=== PATIENT | female | born 1950 | race Caucasian/White ===

== ENCOUNTER 2021-02-07 09:22 | Day surgery (SDC) | payer MEDICARE, OTHER, SELFPAY ==
--- NOTE | 2021-02-06 17:37 | PM.PREOP ---
Pre-operative Note COVID-19 COVID-19 status: Negative Interval Note History & Physical reviewed/Exam performed by Physician: Yes Changes to H&P: No
--- NOTE | 2021-02-06 17:38 | P.OP_ITS ---
Operative Date/Time/Diagnoses Date of procedure: 02/07/21 Time of procedure: 10:45 Procedure & Clinicians Procedure: Preoperative diagnoses: 1. Left complexadvanced nuclear sclerotic and cortical cataract with need for capsular dye 2. Posttraumatic stress disorder 3. Anxiety 4. Smoker 5. Migraine 6. 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 History of left central serous retinopathy. Postoperative diagnoses: 1. Cataract removed by phacoemulsification with placement of posterior chamber intraocular lens. Procedure: Complex Phacoemulsification with posterior chamber intraocular lens implant and use of capsular dye. Surgeon: Viviana Espinoza MD Complications: None Specimen: None Implant: [id number]+24.0 Blood loss: None Anesthesia: Retrobulbar with monitored standby Description of procedure: Patient presents with a complaint of decreased vision due to cataract which is affecting activities of daily living with problems with night driving. The patient wants surgery to improve vision. The patient understands the extra risk of surgery during the COVID-19 epidemic and wishes to proceed. She tested negative for active virus within 72 hours of the procedure. She has had a history of posttraumatic stress syndrome and may have eye trauma and has poor red reflex. She is also very anxious. Therefore it is felt best to proceed with capsular dye increase the safety of the procedure. The patient was taken to the operating room and given IV sedation. A retrobulbar block consisting of 6 cc of 2% xylocaine without epinephrine mixed half and half with 0.5% Marcaine with 1 cc of hyaluronidase added is placed between the medial and lateral 1/3 of the inferior orbital rim. The eye is manually massaged for 30 sec, prepped using Betadine solution, and draped in the usual sterile fashion. Temporal approach was made, a 1 mm side-port incision was made 90? from the proposed clear corneal incision position. Phenylephrine 1.5% mixed with 1% xylocaine 0.2 cc was placed into the anterior chamber an air bubble was placed followed by vision blue capsular dye. The excess dye was then irrigated out with BSS. EndoCoat followed by Healon was then placed. A 2.6 mm clear incision with a 2.6 mm blade was placed. A 360 degree capsulorrhexis style capsulotomy was then performed with a cystitome needle on a Healon greatly aided by the capsular dye. The zonules were mobile but no weaknessis was noted and zonules held intact. Hydrodelineation and hydrodissection were performed. The phacoemulsification unit is introduced, and sculpting notice used to groove the central lens. It is then removed in chopping mode. Epi nucleus is removed with epinuclear mode and irrigation aspiration was used to remove the peripheral cortex. The posterior capsule is polished. The intraocular lens is selected, inspected, power confirmed, and placed in the posterior chamber. The wound was stromally hydrated and tested for leaks, there was none and it was left sutureless. Intracameral moxifloxacin 0.1 cc was placed into the anterior chamber. Kenalog 0.2 cc was placed in the superior subconjunctival space. A drop of antibiotic and was placed and the eye was patched and shielded. The patient was stable and returned to the recovery room in excellent condition. Dictated by: Viviana Espinoza MD Copy to: [facility] Same procedure as scheduled: Yes
[2021-02-07] MEDS: PROPARACAINE 0.5% OPHTH SOL 2 DROPS EYE-OP (09:55)
[2021-02-07] MEDS: CATARACT EYE COMPOUND (10 DROPS/SYRINGE) 3 DROPS EYE-OP (09:56)
[2021-02-07 09:58] VITALS: BP 146/86; PULSE 98; RESP 16; TEMP 36.3; O2SAT 96; BMI 23.5
[2021-02-07] MEDS: LIDOCAINE 2% 4 ML, BUPIVACAINE 0.5% (PF) 4 ML, HYALURONIDASE 150 UNIT INJ (11:16)
[2021-02-07] MEDS: PHENYLEPHRINE/LIDOCAINE VIAL (OR) 0.2 ML EYE-OP (11:28)
[2021-02-07] MEDS: HYALURONATE SODIUM 30 MG-10 MG/ML SYRINGES 1 BOX INTRAOCULA (11:28)
[2021-02-07] MEDS: ERYTHROMYCIN OPHTH 1 GM OINT 1 APPLIC EYE-LEFT (11:28)
[2021-02-07] MEDS: MOXIFLOXACIN INJ 4 MG/0.8 ML VIAL 0.5 MG EYE-OP (11:28)
[2021-02-07] MEDS: TRIAMCINOLONE 50 MG/5 ML VIAL INJ (11:29)
[2021-02-07] MEDS: TRYPAN BLUE 0.5 ML SYRINGE INJ (11:30)
[2021-02-07] MEDS: BALANCED SALT IRRIG SOLN NO.2 500 ML, EPINEPHrine 1 MG IRR (11:31)
[2021-02-07 11:55] VITALS: BP 120/76; PULSE 77; RESP 15; TEMP 36.8; O2SAT 96
== END 2021-02-07 12:18 | disposition home or self-care (01) ==
PROVIDERS: Family Provider Family Medicine; PCP Family Medicine; Referring Provider Ophthalmology; Visit Provider Ophthalmology
PROC: (CPT 66984; principal; 2021-02-07 10:45)
DX: H25.812 Combined forms of age-related cataract, left eye (principal); F43.10 Post-traumatic stress disorder, unspecified; F41.9 Anxiety disorder, unspecified; F17.210 Nicotine dependence, cigarettes, uncomplicated; G43.909 Migraine, unspecified, not intractable, without status migrainosus; T36.1X5A Adverse effect of cephalosporins and other beta-lactam antibiotics, initial encounter
CPT/HCPCS: 66984; J0171; J2704; J3301; J3470

== ENCOUNTER 2021-03-14 09:20 | Day surgery (SDC) | payer MEDICARE, OTHER, SELFPAY ==
--- NOTE | 2021-03-13 17:38 | PM.PREOP ---
Pre-operative Note COVID-19 COVID-19 status: Negative Interval Note History & Physical reviewed/Exam performed by Physician: Yes Changes to H&P: No
--- NOTE | 2021-03-13 17:39 | PM.OP.1 ---
Operative Date/Time/Diagnoses Date of procedure: 03/14/21 Time of procedure: 10:45 Procedure & Clinicians Procedure: Preoperative diagnoses: 1. Complex Right advanced probably tramatic significant nuclear sclerotic and cortical cataract. 2. Posttraumatic stress disorder 3. Anxiety 4. Migraine Postoperative diagnoses: 1. Complex cataract removed by phacoemulsification with placement of posterior chamber intraocular lens. Possible capsular dye. Procedure: Phacoemulsification with posterior chamber intraocular lens implant. Capsular dye used for additional safety. Surgeon: Viviana Espinoza MD Complications: None Specimen: None Implant:[id number]+24.0 Blood loss: None Anesthesia: Retrobulbar with monitored standby Description of procedure: Patient presents with a complaint of decreased vision due to cataract which is affecting activities of daily living with problems with night driving. The patient wants surgery to improve vision. The patient understands the extra risk of surgery during the COVID-19 epidemic and wishes to proceed. She has tested negative for active virus within 72 hours of the procedure. She has a history of previous trauma and post traumatic stress disorder and anxiety. Her cataract is high risk with possible zonular loss due to trauma. Capsular dye issues to increase safety. The patient was taken to the operating room and given IV sedation. A retrobulbar block consisting of 6 cc of 2% xylocaine without epinephrine mixed half and half with 0.5% Marcaine with 1 cc of hyaluronidase added is placed between the medial and lateral 1/3 of the inferior orbital rim. The eye is manually massaged for 30 sec, prepped using Betadine solution, and draped in the usual sterile fashion. Additional anti anxiety medication was given several times during the procedure. Temporal approach was made, a 1 mm side-port incision was made 90? from the proposed clear corneal incision position. Phenylephrine 1.5% mixed with 1% xylocaine 0.2 cc was placed into the anterior chamber. An air bubble was placed followed by capsular dye. The BSS was then used to irrigate out the air bubble. EndoCoat followed by Healon was then placed. A 2.6 mm clear incision with a 2.6 mm blade was placed. A 360 degree capsulorrhexis style capsulotomy was then performed with a cystitome needle on a Healon aided by the capsular dye. Her zonules were somewhat loose during the procedure. Hydrodelineation and hydrodissection were performed. The phacoemulsification unit is introduced, and sculpting notice used to groove the central lens. It is then removed in chopping mode. Extra viscoelastic was placed for safety. nucleus is removed with epinuclear mode and irrigation aspiration was used to remove the peripheral cortex. The posterior capsule is polished. The intraocular lens is selected, inspected, power confirmed, and placed in the posterior chamber. The wound was stromally hydrated and tested for leaks, there was none and it was left sutureless. The lens centered well. Intracameral moxifloxacin 0.1 cc was placed into the anterior chamber. Kenalog 0.2 cc was placed in the superior subconjunctival space. A drop of antibiotic and was placed and the eye was patched and shielded. The patient was stable and returned to the recovery room in excellent condition. Dictated by: Viviana Espinoza MD Copy to: [facility] Same procedure as scheduled: Yes
[2021-03-14] MEDS: PROPARACAINE 0.5% OPHTH SOL 2 DROPS EYE-OP (09:40)
[2021-03-14] MEDS: CATARACT EYE COMPOUND (10 DROPS/SYRINGE) 3 DROPS EYE-OP (09:48)
[2021-03-14 09:51] VITALS: BMI 23.5
[2021-03-14 09:59] VITALS: BP 153/80; PULSE 80; RESP 95; TEMP 36.4; O2SAT 12
[2021-03-14] MEDS: LIDOCAINE 2% 4 ML, BUPIVACAINE 0.5% (PF) 4 ML, HYALURONIDASE 150 UNIT INJ (10:50)
--- NOTE | 2021-03-14 11:06 | SUR.OPER ---
Supine on eye stretcher, head on extension cradle and foam donut then secured with tape. Arms tucked at sides with blanket. Pillow under knees.
[2021-03-14] MEDS: HYALURONATE SODIUM 30 MG-10 MG/ML SYRINGES 1 BOX INTRAOCULA (11:10)
[2021-03-14] MEDS: MOXIFLOXACIN INJ 4 MG/0.8 ML VIAL 0.5 MG EYE-OP (11:10)
[2021-03-14] MEDS: TRIAMCINOLONE 50 MG/5 ML VIAL INJ (11:11)
[2021-03-14] MEDS: PHENYLEPHRINE/LIDOCAINE VIAL (OR) 0.2 ML EYE-OP (11:11)
[2021-03-14] MEDS: BALANCED SALT IRRIG SOLN NO.2 500 ML, EPINEPHrine 1 MG IRR (11:12)
[2021-03-14] MEDS: ERYTHROMYCIN OPHTH 1 GM OINT 1 APPLIC EYE-RIGHT (11:12)
[2021-03-14] MEDS: TRYPAN BLUE 0.5 ML SYRINGE INJ (11:13)
[2021-03-14 11:38] VITALS: BP 110/66; PULSE 80; RESP 16; TEMP 36.2; O2SAT 96
[2021-03-14 12:10] VITALS: BP 110/63; PULSE 77; RESP 16; TEMP 36.1; O2SAT 95
== END 2021-03-14 12:21 | disposition home or self-care (01) ==
PROVIDERS: Family Provider Family Medicine; PCP Family Medicine; Referring Provider Ophthalmology; Visit Provider Ophthalmology
PROC: (CPT 66984; principal; 2021-03-14 10:45)
DX: H25.811 Combined forms of age-related cataract, right eye (principal); F43.10 Post-traumatic stress disorder, unspecified; F41.9 Anxiety disorder, unspecified; G43.909 Migraine, unspecified, not intractable, without status migrainosus; F17.210 Nicotine dependence, cigarettes, uncomplicated
CPT/HCPCS: 66984; J0171; J2250; J3010; J3301; J3470

== ENCOUNTER 2024-09-16 16:24 | Inpatient (IN) | payer MEDICARE, OTHER, SELFPAY ==
[2024-09-16] VITALS (10 sets, daily range): BP systolic 141–181; BP diastolic 73–89; PULSE 86–108; RESP 16–20; TEMP 36.4–36.7; O2SAT 94–97; BMI 18.0; BMI 10.5
--- NOTE | 2024-09-16 16:39 | DI.RAD.S_ITS ---
PROCEDURE: XR FINGER RT MIN 2V INDICATIONS: right second finger wound. hx of septic wounds TECHNIQUE: AP hand, 2 views of the 2nd finger(s) acquired. COMPARISON: None. FINDINGS AND IMPRESSION: Cofj-rb-tyminlvr scattered degenerative changes particularly at the base of the thumb. No acute displaced fracture or dislocation. No definite radiographic osseous erosions. Soft tissue defect seen at the tip of the index finger. If there is high concern for further derangement, consider MRI evaluation. Dictated by: Jonathan Sylvester M.D. on 09/16/2024 at 17:09 Approved by: Jonathan Sylvester M.D. on 09/16/2024 at 17:10
--- NOTE | 2024-09-16 16:45 | EKG_ITS ---
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
[2024-09-16 17:46] LABS: INR 0.9 (0.9-1.3); Prothrombin Time 10.5 SECONDS (9.4-12.5)
[2024-09-16 17:48] LABS: PTT Partial Thromboplastin Tim 34 SECONDS (25.1-36.5)
[2024-09-16 17:50] LABS: Alanine Aminotransferase 24 IU/L (<35); Albumin 4.2 g/dL (3.5-5.0); Albumin Globulin Ratio 1.7 (1.0-2.8); Alkaline Phosphatase 99 U/L (38-126); Aspartate Aminotransferase 33 IU/L (14-36); Blood Urea Nitrogen 5 mg/dL (7-17); Calcium 8.5 mg/dL (8.4-10.2); Carbon Dioxide 23 mmol/L (22-32); Chloride 99 mmol/L (98-107); Estimated Glomerular Filt Rate > 60 mL/min (>60); Globulin 2.5 g/dL (1.7-4.1); Glucose 117 mg/dL (70-99); HEMOLYSIS 15 (0-50); Lipase 36 U/L (23-300); Sodium 131 mmol/L (137-145); Total Protein 6.7 g/dL (6.3-8.2)
[2024-09-16 17:51] LABS: Add Manual Diff / Slide Review NO; Basophils Absolute Auto 0 /uL (0-100); Basophils Percent Auto 0.2 % (0-2); Eosinophils Absolute Auto 0 /uL (0-450); Eosinophils Percent Auto 0.4 % (2-4); Hematocrit 39.8 % (36-46); Hemoglobin 13.3 g/dL (12.0-16.0); Lymphocytes Absolute Auto 2200 /uL (1100-4500); Lymphocytes Percent Auto 20.4 % (25-40); Mean Corpuscular HGB Conc 33.5 % (30-36); Mean Corpuscular Hemoglobin 35.2 PG (26-34); Monocytes Absolute Auto 1000 /uL (0-900); Monocytes Percent Auto 9.7 % (3-14); Neutrophils Absolute Auto 7500 /uL (1500-7000); Neutrophils Percent Auto 69.3 % (50-75); Platelet Count 240 X10^3/uL (150-400); Red Blood Cell Count 3.79 X10^6/uL (4.0-5.2); Red Cell Distribution Width 15.3 % (11.6-14.8); White Blood Cell Count 10.8 X10^3/uL (4.5-11.0)
--- NOTE | 2024-09-16 18:08 | ED.WOUNDLAC ---
HPI - Wound/Laceration General Chief Complaint: Wound/Laceration Stated Complaint: Infection spreading in r hand index finger Time Seen by Provider: 09/16/24 18:08 Source: patient Mode of arrival: Ambulatory History of Present Illness HPI narrative: Patient is a 74-year-old female no significant past medical history presenting to the emergency department from home for evaluation of infection to the right 2nd finger. She states that she is worried that it is spreading, states that she discussed with her primary care doctor and was advised to come into the ED, she states that she was started on doxycycline on Friday but states that there was no improvement. She denies any new injuries not complaining of any other symptoms such as headache visual disturbances chest pain shortness breath fever or any other GI/ symptoms time. She states that something similar like this happened prior to the top of her hand required her to be admitted for IV antibiotics states that they were not sure what was the cause. Patient states that she cut it initially on piece of paper. Related Data Home Medications ?Medication ?Instructions ?Recorded ?Confirmed zolpidem 5 mg tablet 10 mg HS ##0 01/31/16 03/14/21 albuterol 90 mcg/actuation aerosol 2 mcg inhalation PRN PRN Allergy 02/07/21 03/14/21 inhaler Symptoms denosumab 60 mg/mL subcutaneous 60 mg SUBCUT [id number] 02/07/21 03/14/21 syringe (Prolia) diclofenac sodium 1 % topical gel 2 g topical QID PRN Analgesia 02/07/21 03/14/21 escitalopram oxalate 20 mg tablet 20 mg PO DAILY 02/07/21 03/14/21 (Lexapro) fluticasone propionate 50 1 spray intranasal DAILY 02/07/21 03/14/21 mcg/actuation nasal spray,suspension lorazepam 0.5 mg tablet 0.5 mg PO PRN PRN Anxiety 02/07/21 03/14/21 mirtazapine 45 mg tablet 45 mg PO BEDTIME 02/07/21 03/14/21 diphenhydramine HCl 25 mg capsule 25 mg PO Q6H PRN Allergy Symptoms 03/14/21 03/14/21 (Benadryl) Allergies Allergy/AdvReac Type Severity Reaction Status Date / Time cephalexin (From KEFLEX) Allergy Severe Anaphylaxis Verified 09/16/24 16:28 Penicillins (PENICILLINS) Allergy Severe Anaphylaxis Verified 09/16/24 16:28 Review of Systems Review of Systems Narrative: General: Denies fever, chills, weight loss HEENT: Denies headache, eye drainage, eye irritation, head trauma, sore throat, voice change Cardiovascular: Denies any chest pain, palpitations, tachycardia Respiratory: Denies any shortness of breath, cough, wheeze, stridor GI/: Denies any abdominal pain, nausea, vomiting, diarrhea, bright red blood per rectum, melanotic stools, urinary frequency, urinary retention, dysuria, hematuria MSK: Positive swelling to the index finger the right hand Skin: Denies any rashes, lesions, discoloration Neuro: Denies any headache, lightheadedness, dizziness, fainting, weakness Psych: Denies SI/HI Patient History Surgical History (Updated 07/29/17 @ 05:57 by Conversion Provider) Status post hysterectomy (01/29/88) Family History (Updated 03/26/16 @ 00:00 by Conversion Provider) Father Diabetes mellitus Diabetic polyneuropathy Grandfather Heart disease Mother Mental health problem Social History household members: friend(s) alcohol intake: current Smoking Status: Current every day smoker alcohol intake frequency: 0-2 drinks per day Exam Narrative Exam Narrative: General: Cooperative, well-developed, not in acute distress HEENT: Normocephalic, atraumatic, PERRLA, normal sclera, eyelids normal Neck: Active full range of motion, atraumatic Chest: Normal to inspection, negative crepitus, no overlying erythema ecchymosis Respiratory: Normal respiratory effort, not in acute respiratory distress, clear to auscultation bilaterally negative cough, wheeze, tachypnea, rhonchi, rales Cardiology: Regular rate rhythm negative gallop, murmur, rubs GI/: No tenderness to palpation, soft, non rigid, normal to inspection, exam deferred MSK: Patient with circumferential swelling to the right index finger, there is ecchymosis and a wound noted to the distal aspect of the pointer finger, there is pain with passive extension and is held in slight flexion Skin: No rashes or lesions noted Neuro: Alert awake oriented x3, moves all 4 extremities spontaneously, cranial nerves intact, able to answer all questions appropriately follows commands appropriately Psych: Cooperative, negative suicidal or homicidal ideations Initial Vital Signs Initial Vital Signs: Vital Signs Temperature 98.0 F 09/16/24 16:28 Pulse Rate 108 H 09/16/24 16:28 Respiratory Rate 16 09/16/24 16:28 Blood Pressure 141/80 H 09/16/24 16:28 Pulse Oximetry 95 09/16/24 16:28 Oxygen Delivery Method Room Air 09/16/24 16:28 Course Orders Ordered: ED Orders 09/16/24 16:39 XR finger RT min 2V Stat 09/16/24 16:45 EKG-12 Lead Stat 09/16/24 17:20 Complete Blood Count AUTO DIFF Stat Comprehensive Metabolic Panel Stat Lactate (Lactic Acid) Stat Lipase Stat PTT Partial Thromboplastin Justin Stat Procalcitonin Stat Prothrombin Time INR Stat 09/16/24 18:14 Blood Culture Stat Wound Culture and Gram Stain Stat Levofloxacin (Levaquin) 750 mg in 150 mls @ 100 mls/hr IV NOW ONE Stop: 09/16/24 20:36 Last Admin: 09/16/24 20:14 Dose: 100 mls/hr Documented By: BRUNA Ondansetron HCl (Ondansetron 4 Mg/2 Ml Inj) 4 mg IV NOW PRN PRN Reason: Nausea And Vomiting Ondansetron HCl (Ondansetron 4 Mg Odt) 4 mg PO NOW PRN PRN Reason: Nausea And Vomiting Discontinued Medications Vancomycin HCl 1,000 mg/ (Sodium Chloride) 100 mls @ 100 mls/hr IV NOW ONE Stop: 09/16/24 18:49 Last Admin: 09/16/24 19:10 Dose: Not Given Documented By: ERA Clindamycin Phosphate (Cleocin) 600 mg in 50 mls @ 50 mls/hr IV NOW ONE Stop: 09/16/24 20:07 Last Admin: 09/16/24 19:21 Dose: 50 mls/hr Documented By: CYN Lidocaine HCl (Lidocaine 1% 20 Ml) 20 ml INJ INTRA-OP ONE Stop: 09/16/24 19:58 Morphine Sulfate (Morphine 4 Mg/Ml Inj) 4 mg IV NOW ONE Stop: 09/16/24 18:50 Last Admin: 09/16/24 19:02 Dose: 4 mg Documented By: ROSEMARIE Vital Signs Vital signs: Vital Signs - 8 hr 09/16/24 16:28 09/16/24 17:49 09/16/24 18:00 Temperature 98.0 F Pulse Rate 108 H 99 H 96 H Respiratory Rate 16 Blood Pressure 141/80 H Pulse Oximetry 95 96 96 Oxygen Delivery Method Room Air 09/16/24 18:00 09/16/24 18:30 09/16/24 18:30 Temperature Pulse Rate 86 Respiratory Rate Blood Pressure 175/82 H 169/74 H Pulse Oximetry 96 Oxygen Delivery Method 09/16/24 19:00 09/16/24 19:00 Temperature Pulse Rate 88 Respiratory Rate 20 Blood Pressure 169/79 H Pulse Oximetry 97 Oxygen Delivery Method MDM - Wound/Laceration Differential Diagnosis Differential diagnosis: Likely other (Felon, flexor tenosynovitis, cellulitis) Lab Data 09/16/24 17:20 09/16/24 17:20 Labs: Lab Results 09/16/24 Range/Units 17:20 WBC 10.8 (4.5-11.0) X10^3/uL RBC 3.79 L (4.0-5.2) X10^6/uL Hgb 13.3 (12.0-16.0) g/dL Hct 39.8 (36-46) % MCV 105.0 H (80-100) fL MCH 35.2 H (26-34) PG MCHC 33.5 (30-36) % RDW 15.3 H (11.6-14.8) % Plt Count 240 (150-400) X10^3/uL Neut % (Auto) 69.3 (50-75) % Lymph % (Auto) 20.4 L (25-40) % [place] % (Auto) 9.7 (3-14) % Eos % (Auto) 0.4 L (2-4) % Baso % (Auto) 0.2 (0-2) % Neut # (Auto) 7500 H (6547-5873) /uL Lymph # (Auto) 2200 (9195-8666) /uL [place] # (Auto) 1000 H (0-900) /uL Eos # (Auto) 0 (0-450) /uL Baso # (Auto) 0 (0-100) /uL PT 10.5 (9.4-12.5) SECONDS INR 0.9 (0.9-1.3) APTT 34 (25.1-36.5) SECONDS Sodium 131 L (137-145) mmol/L Potassium 4.0 (3.4-5.1) mmol/L Chloride 99 (98-107) mmol/L Carbon Dioxide 23 (22-32) mmol/L BUN 5 L (7-17) mg/dL Creatinine 0.50 L (0.52-1.04) mg/dL Estimated GFR > 60 (>60) mL/min BUN/Creatinine Ratio 10.0 (6-22) Glucose 117 H (70-99) mg/dL Lactate 1.0 (0.7-2.1) mmol/L Calcium 8.5 (8.4-10.2) mg/dL Total Bilirubin 1.0 (0.2-1.3) mg/dL AST 33 (14-36) IU/L ALT 24 (<35) IU/L Alkaline Phosphatase 99 (38-126) U/L Total Protein 6.7 (6.3-8.2) g/dL Albumin 4.2 (3.5-5.0) g/dL Globulin 2.5 (1.7-4.1) g/dL Albumin/Globulin Ratio 1.7 (1.0-2.8) Lipase 36 (23-300) U/L Procalcitonin 31.0 H (<0.5) ng/mL Imaging Data Extremity x-ray #1: Radiologist's Impression: [address] [address] XRay Report Signed Patient: Tennille Vora MR#: [id number] : 1950 Acct:[id number] Age/Sex: 74 / F Date of Service: 09/16/24 Loc: ED Accession Number: [id number] Procedure: XR finger RT min 2V Ordering Provider: Helio Jackson D.O. PROCEDURE: XR FINGER RT MIN 2V INDICATIONS: right second finger wound. hx of septic wounds TECHNIQUE: AP hand, 2 views of the 2nd finger(s) acquired. COMPARISON: None. FINDINGS AND IMPRESSION: [id number]-[id number] scattered degenerative changes particularly at the base of the thumb. No acute displaced fracture or dislocation. No definite radiographic osseous erosions. Soft tissue defect seen at the tip of the index finger. If there is high concern for further derangement, consider MRI evaluation. MDM Narrative Medical decision making narrative: 72-year-old female no significant past medical history presenting for swelling to her right index finger, states that she noticed worsening infection to the right distal finger proximally 1 week ago, states that she is not sure what she cut it on thinks it was on a piece of paper. States that she saw her primary care doctor was started on doxycycline on Friday but states it is getting worse on exam patient with circumferential swelling there is pain with passive extension worries for flexor tenosynovitis therefore orthopedics was consulted immediately. Patient was given antibiotics prophylactically. Lab work not showing any leukocytosis but does show elevated pro count. She is not meeting any other sepsis or SIRS criteria at this time. X-ray not showing any acute bony injury 1846: Had a discussion with pharmacy, when patient with anaphylaxis to penicillins and cephalosporins it was decision to treat with clindamycin and a fluoroquinolone, pharmacy to dose 1931: Discussed case with Dr. Kelly (orthopedic surgery) states will come see patient in ER for evaluation 2017: Dr. Kelly at bedside, states that he believes this is more of felon, however given patient's history of previous infections requiring IV antibiotics he is recommending that patient be admitted for 24 hours of IV antibiotics to make sure patient is responding, patient did have I and D performed by Dr. Kelly here in the emergency department, will place call out to hospitalist for admission The patient's management plan was discussed Dr. Davila, who agrees to admit the patient to their service and assumes care of this patient at this time. Full admission orders will be placed by the primary team. Discharge Plan Departure Patient Disposition: Admitted as Observation Clinical Impression: Cellulitis of finger, Felon of digit
--- NOTE | 2024-09-16 18:24 | PC.NURSE ---
Pt right hand soaking in warm, soapy water
--- NOTE | 2024-09-16 18:33 | PC.NURSE ---
Right hand pointer finger swollen, tender, red and purple. Pt reports she noticed a cut that looked infected little less than a week ago. Pt believes her tetanus was updated last December. Pt reports she has been cleaning her wound with soap and water. History of antibiotic resistant infection
[2024-09-16] MEDS: MORPHINE 4 MG/ML INJ IV ×2 (19:02→22:03)
[2024-09-16] MEDS: CLINDAMYCIN 600 MG/50 ML PIGGYBACK 50 MG IV (19:21)
--- NOTE | 2024-09-16 19:30 | PC.NURSE ---
pt resting on stretcher waiting ortho consult without c/o pain at this time
--- NOTE | 2024-09-16 20:05 | PC.NURSE ---
ortho here to evaluate pt
[2024-09-16] MEDS: levoFLOXacin 750 MG/150 ML PIGGYBACK 100 MG IV (20:14)
[2024-09-16] MEDS: LIDOCAINE 1% 20 ML INJ (20:28)
--- NOTE | 2024-09-16 20:45 | PM.CN.IH.1 ---
History of Present Illness Consult details Date Patient Seen: 09/16/24 Chief complaint: Infection spreading in r hand index finger Reason for consult: Right index finger infection Requesting provider: Alex Crouch Narrative: Tennille is a 74-year-old right-hand dominant female who presents today to the emergency room for complaint of infection of her right index finger. She has had previous infections of her hand that have required hospitalizations. She reports having a minor laceration to her right index finger about a week and a half ago and subsequently has developed swelling and pain in the tip of the finger that has progressively worsened over the last handful of days. She was seen at the clinic in Friday and instructed to report to the emergency room here today. Upon presentation complained of pain in the right index finger with some limited motion. Orthopedic consult was requested to evaluate for suspected finger infection. Meds Home Medications and Allergies Home Medications ?Medication ?Instructions ?Recorded ?Confirmed ?Type zolpidem 5 mg tablet 10 mg HS ##0 01/31/16 03/14/21 History albuterol 90 mcg/actuation aerosol 2 mcg inhalation PRN PRN Allergy 02/07/21 03/14/21 History inhaler Symptoms denosumab 60 mg/mL subcutaneous 60 mg SUBCUT [id number] 02/07/21 03/14/21 History syringe (Prolia) diclofenac sodium 1 % topical gel 2 g topical QID PRN Analgesia 02/07/21 03/14/21 History escitalopram oxalate 20 mg tablet 20 mg PO DAILY 02/07/21 03/14/21 History (Lexapro) fluticasone propionate 50 1 spray intranasal DAILY 02/07/21 03/14/21 History mcg/actuation nasal spray,suspension lorazepam 0.5 mg tablet 0.5 mg PO PRN PRN Anxiety 02/07/21 03/14/21 History mirtazapine 45 mg tablet 45 mg PO BEDTIME 02/07/21 03/14/21 History diphenhydramine HCl 25 mg capsule 25 mg PO Q6H PRN Allergy Symptoms 03/14/21 03/14/21 History (Benadryl) Allergies Allergy/AdvReac Type Severity Reaction Status Date / Time cephalexin (From KEFLEX) Allergy Severe Anaphylaxis Verified 09/16/24 16:28 Penicillins (PENICILLINS) Allergy Severe Anaphylaxis Verified 09/16/24 16:28 Exam Vital Signs (past 8 hours): - 09/16/24 16:28 09/16/24 17:49 09/16/24 18:00 Temperature 98.0 F Pulse Rate 108 H 99 H 96 H Respiratory Rate 16 Blood Pressure 141/80 H Pulse Oximetry 95 96 96 Oxygen Delivery Method Room Air 09/16/24 18:00 09/16/24 18:30 09/16/24 18:30 Temperature Pulse Rate 86 Respiratory Rate Blood Pressure 175/82 H 169/74 H Pulse Oximetry 96 Oxygen Delivery Method 09/16/24 19:00 09/16/24 19:00 Temperature Pulse Rate 88 Respiratory Rate 20 Blood Pressure 169/79 H Pulse Oximetry 97 Oxygen Delivery Method Oxygen Delivery Method Room Air Narrative Exam Narrative: Right upper extremity shows swelling, erythema, and limited motion of the right index finger with an open wound on the radial aspect over the distal phalanx. Swelling is mostly limited to the distal phalanx and slightly into the middle phalanx region. There is no significant tenderness at the metacarpophalangeal joint or the proximal phalanx. She does have some limited flexion of the finger but is able to flex through the MCP joint fairly well. Sensation was intact to light touch. Objective Labs 09/16/24 17:20 09/16/24 17:20 Labs: Laboratory Results - last 24 hr 09/16/24 17:20 WBC 10.8 RBC 3.79 L Hgb 13.3 Hct 39.8 MCV 105.0 H MCH 35.2 H MCHC 33.5 RDW 15.3 H Plt Count 240 Neut % (Auto) 69.3 Lymph % (Auto) 20.4 L [place] % (Auto) 9.7 Eos % (Auto) 0.4 L Baso % (Auto) 0.2 Neut # (Auto) 7500 H Lymph # (Auto) 2200 [place] # (Auto) 1000 H Eos # (Auto) 0 Baso # (Auto) 0 PT 10.5 INR 0.9 APTT 34 Sodium 131 L Potassium 4.0 Chloride 99 Carbon Dioxide 23 BUN 5 L Creatinine 0.50 L Estimated GFR > 60 BUN/Creatinine Ratio 10.0 Glucose 117 H Lactate 1.0 Calcium 8.5 Total Bilirubin 1.0 AST 33 ALT 24 Alkaline Phosphatase 99 Total Protein 6.7 Albumin 4.2 Globulin 2.5 Albumin/Globulin Ratio 1.7 Lipase 36 Procalcitonin 31.0 H PFSH Surgical History (Updated 07/29/17 @ 05:57 by Conversion Provider) Status post hysterectomy (01/29/88) Family History (Updated 03/26/16 @ 00:00 by Conversion Provider) Father Diabetes mellitus Diabetic polyneuropathy Grandfather Heart disease Mother Mental health problem Social History household members: friend(s) Tobacco & Substance Use Smoking Status: Current every day smoker alcohol intake: current Assessment & Plan Assessment and plan (1) Felon of digit: Problem details: Right index finger Status: Acute (2) Cellulitis of finger: Problem details: Right index finger Qualifiers: Laterality: right Qualified Code(s): L03.011 - Cellulitis of right finger Status: Acute Assessment & Plan narrative: Diagnosis treatment options were discussed with the patient. She has a felon of the right index finger. I recommended incision and drainage under digital block along with continued antibiotics and local wound treatment. Patient was in agreement with this plan. Verbal consent was obtained. The right index finger was anesthetized with 1% lidocaine without epinephrine in a digital block fashion after prepping the skin with chlorhexidine. Once the block was set, the finger was prepped with chlorhexidine and then draped out. A midlateral incision along the radial aspect of the distal phalanx was then made with a 15 blade and carried down to the distal phalanx. Using iris scissors, the volar pulp of the fingertip was opened from radial to ulnar across the full width of the phalanx the septa deeply. A culture swab was then used to obtain cultures from the deep tissues. The tissues were then expressed for any additional purulent material which there was only a drop or 2. The wound was then irrigated with saline and packed with iodoform gauze and dressed with gauze dressings followed by a tube gauze. She is to continue with antibiotics as prescribed by the ER physician. I think it be reasonable for her to have observation overnight to ensure that she responds appropriately to the antibiotics. Time-Based Coding :: [TOTAL MINUTES] spent with patient and on the chart (including review of chart, obtaining history, exam, reviewing outside data, placing orders, documenting exam and treatment plan, and counseling patient) on [DATE]. PROFEE Charge Codes Inpatient or Observation consultation: [id number]
[2024-09-17] MEDS: ZOLPIDEM 5 MG TABLET PO ×2 (00:16→20:28)
[2024-09-17] MEDS: CLINDAMYCIN 600 MG/50 ML PIGGYBACK 50 MG IV ×4 (01:11→17:28)
--- NOTE | 2024-09-17 02:15 | PM.HP.1 ---
History of Present Illness History of Present Illness Chief complaint: Infection spreading in r hand index finger Narrative: 74 year-old female with past medical history of anxiety and insomnia presents with concern for right second finger infection.? Per the patient's report, the patient had a paper cut on her second right finger about a week ago.? The patient was seen by her PCP and was prescribed doxycycline on Friday for cellulitis of the finger.? However despite taking her doxycycline as prescribed, the patient continued to have worsening redness, pain and swelling of her right second finger.? Otherwise the patient denies any fever, chills, nausea, vomiting, diarrhea, chest pain or shortness of breath. In the ER, the patient was hemodynamically stable.? Labs does not show any sign of sepsis with normal lactate and WBC.? Sodium 131.? Orthopedic surgeon was consulted and did do an I&D of the second right finger in the ER.? Orthopedics recommended that we continue IV clindamycin and observe the patient overnight.? If condition improved can discharge home on clindamycin. [facility] Surgical History (Updated 07/29/17 @ 05:57 by Conversion Provider) Status post hysterectomy (01/29/88) Family History (Updated 03/26/16 @ 00:00 by Conversion Provider) Father Diabetes mellitus Diabetic polyneuropathy Grandfather Heart disease Mother Mental health problem Social History household members: friend(s) Smoking Status: Current every day smoker alcohol intake: current Meds Home Medications and Allergies Home Medications ?Medication ?Instructions ?Recorded ?Confirmed ?Type zolpidem 5 mg tablet 10 mg PO HS ##0 01/31/16 09/16/24 History albuterol 90 mcg/actuation aerosol 2 mcg inhalation PRN PRN Allergy 02/07/21 09/16/24 History inhaler Symptoms denosumab 60 mg/mL subcutaneous 60 mg SUBCUT [id number] 02/07/21 09/16/24 History syringe (Prolia) escitalopram oxalate 20 mg tablet 20 mg PO DAILY 02/07/21 09/16/24 History (Lexapro) diphenhydramine HCl 25 mg capsule 25 mg PO Q6H PRN Allergy Symptoms 03/14/21 09/16/24 History (Benadryl) atorvastatin 20 mg tablet 20 mg PO QPM 09/16/24 09/16/24 History zolpidem 12.5 mg tablet,extended 12.5 mg PO ONCE PM PRN insomnia 09/16/24 09/16/24 History release,multiphase Allergies Allergy/AdvReac Type Severity Reaction Status Date / Time cephalexin (From KEFLEX) Allergy Severe Anaphylaxis Verified 09/16/24 16:28 Penicillins (PENICILLINS) Allergy Severe Anaphylaxis Verified 09/16/24 16:28 Review of Systems Review of Systems ROS: Yes All systems reviewed with the patient and are negative except as otherwise documented Exam Vital Signs (past 8 hours): - 09/16/24 18:30 09/16/24 18:30 09/16/24 19:00 Temperature Pulse Rate 86 Respiratory Rate Blood Pressure 169/74 H 169/79 H Pulse Oximetry 96 Oxygen Flow Rate 09/16/24 19:00 09/16/24 19:30 09/16/24 20:00 Temperature Pulse Rate 88 95 H 86 Respiratory Rate 20 18 18 Blood Pressure 163/74 H 181/86 H Pulse Oximetry 97 97 96 Oxygen Flow Rate 09/16/24 21:30 09/16/24 22:00 09/16/24 23:23 Temperature 97.5 F L Pulse Rate 95 H 92 H 100 H Respiratory Rate 20 18 19 Blood Pressure 152/73 H 171/78 H 174/89 H Pulse Oximetry 97 97 94 Oxygen Flow Rate 0 Oxygen Delivery Method Room Air Oxygen Flow Rate 0 Narrative Exam Narrative: Physical Exam: GENERAL: The patient is not in any acute distressed. Awake and alert. HEENT: Nonicteric sclerae, PERRLA, EOMI. Oropharynx clear. Moist mucous membranes. Conjunctivae appear well perfused. HEART: Regular rate and rhythm without murmurs. No lower extremities edema. LUNGS: Clear to auscultation bilaterally. No wheezing, crackles or rhonchi ABDOMEN: Soft, positive bowel sounds, nontender. SKIN: Second right finger in dressing. No rash, no excessive bruising, petechiae, or purpura. NEUROLOGIC: AxO x 3. Cranial nerves II-XII intact without motor/sensory deficit. Objective Labs 09/16/24 17:20 09/16/24 17:20 Labs: Laboratory Results - last 24 hr 09/16/24 17:20 WBC 10.8 RBC 3.79 L Hgb 13.3 Hct 39.8 MCV 105.0 H MCH 35.2 H MCHC 33.5 RDW 15.3 H Plt Count 240 Neut % (Auto) 69.3 Lymph % (Auto) 20.4 L [place] % (Auto) 9.7 Eos % (Auto) 0.4 L Baso % (Auto) 0.2 Neut # (Auto) 7500 H Lymph # (Auto) 2200 [place] # (Auto) 1000 H Eos # (Auto) 0 Baso # (Auto) 0 PT 10.5 INR 0.9 APTT 34 Sodium 131 L Potassium 4.0 Chloride 99 Carbon Dioxide 23 BUN 5 L Creatinine 0.50 L Estimated GFR > 60 BUN/Creatinine Ratio 10.0 Glucose 117 H Lactate 1.0 Calcium 8.5 Total Bilirubin 1.0 AST 33 ALT 24 Alkaline Phosphatase 99 Total Protein 6.7 Albumin 4.2 Globulin 2.5 Albumin/Globulin Ratio 1.7 Lipase 36 Procalcitonin 31.0 H Assessment & Plan Assessment & Plan narrative: Cellulitis of right second finger with significant swelling.? Admit the patient to medical observation.? Of note the patient not septic at this time.? The patient did had I&D and swab sent for culture by orthopedic surgeon in the ER.? Per orthopedic surgery recommendation.? Continue IV clindamycin and observe the patient overnight.? If patient condition improves can discharge home on oral clindamycin and follow-up as outpatient. Mild hyponatremia.? Likely from dehydration.? NS and recheck sodium in the morning.? Of note sodium was 131. Insomnia.? Resume home medication. Anxiety.? Resume home antianxiety medication. DVT prophylaxis SCD due to observational status. CODE STATUS full code. Disposition likely home in 1 to 2 days. - As the provider of this telehealth evaluation, requested by the patient's evaluating physician, I attest that I introduced myself to the patient, provided my credentials and determined that telemedicine via a real-time, 2 way interactive audio and video platform is an appropriate and effective means of providing this service. - I reviewed the patient's chart and had a discussion with the member of the patient's treatment team. - The patient and I mutually agreed with continuation of this evaluation via telemedicine. The patient consented for the telemedicine evaluation. - This virtual encounter was taken place from [place] by Dr. Wellington Davila. The patient was evaluated at [facility]. The encounter was approximately 35 minutes. The nurse was present during the entire time of the encounter and was able to move the stethoscope in appropriate directions. Time-Based Coding :: [TOTAL MINUTES] spent with patient and on the chart (including review of chart, obtaining history, exam, reviewing outside data, placing orders, documenting exam and treatment plan, and counseling patient) on [DATE]. Quality VTE Deep Vein Thrombosis/Pulmonary Embolism Present on Admission: No
[2024-09-17] MEDS: MORPHINE 4 MG/ML INJ IV ×3 (05:46→18:00)
[2024-09-17 06:52] LABS: Add Manual Diff / Slide Review NO; Basophils Absolute Auto 0 /uL (0-100); Basophils Percent Auto 0.3 % (0-2); Eosinophils Absolute Auto 100 /uL (0-450); Eosinophils Percent Auto 1.2 % (2-4); Hematocrit 37.1 % (36-46); Hemoglobin 12.6 g/dL (12.0-16.0); Lymphocytes Absolute Auto 2100 /uL (1100-4500); Lymphocytes Percent Auto 31.8 % (25-40); Mean Corpuscular HGB Conc 33.8 % (30-36); Mean Corpuscular Hemoglobin 35.6 PG (26-34); Mean Corpuscular Volume 105.1 fL (80-100); Monocytes Absolute Auto 800 /uL (0-900); Monocytes Percent Auto 11.8 % (3-14); Neutrophils Absolute Auto 3600 /uL (1500-7000); Neutrophils Percent Auto 54.9 % (50-75); Platelet Count 236 X10^3/uL (150-400); Red Blood Cell Count 3.53 X10^6/uL (4.0-5.2); Red Cell Distribution Width 15.3 % (11.6-14.8); White Blood Cell Count 6.6 X10^3/uL (4.5-11.0)
[2024-09-17 07:02] LABS: BUN Creatinine Ratio 10.5 (6-22); Blood Urea Nitrogen 6 mg/dL (7-17); Calcium 8.1 mg/dL (8.4-10.2); Carbon Dioxide 28 mmol/L (22-32); Chloride 98 mmol/L (98-107); Estimated Glomerular Filt Rate > 60 mL/min (>60); Glucose 88 mg/dL (70-99); HEMOLYSIS < 15 (0-50); Potassium 3.9 mmol/L (3.4-5.1); Sodium 130 mmol/L (137-145)
[2024-09-17] MEDS: ACETAMINOPHEN 325 MG TABLET 650 MG PO ×2 (08:18→15:38)
[2024-09-17] MEDS: ESCITALOPRAM 10 MG TABLET 20 MG PO (08:18)
[2024-09-17] MEDS: HYDROCODONE/ACET 5/325 TABLET 1 TAB PO (08:18)
[2024-09-17 08:30] VITALS: BP 142/72; PULSE 93; RESP 20; TEMP 36.3; O2SAT 96
[2024-09-17] MEDS: OXYCODONE IR 5 MG TABLET PO ×3 (09:27→20:29)
--- NOTE | 2024-09-17 11:40 | P.PN_ITS ---
Subjective Subjective Date Patient Seen: 09/17/24 Time Patient Seen: 08:55 Interval history: Narrative: 74 year-old female with past medical history of anxiety and insomnia presents with concern for right second finger infection.? Per the patient's report, the patient had a paper cut on her second right finger about a week ago.? The patient was seen by her PCP and was prescribed doxycycline on Friday for cellulitis of the finger.? However despite taking her doxycycline as prescribed, the patient continued to have worsening redness, pain and swelling of her right second finger.? Otherwise the patient denies any fever, chills, nausea, vomiting, diarrhea, chest pain or shortness of breath. In the ER, the patient was hemodynamically stable.? Labs does not show any sign of sepsis with normal lactate and WBC.? Sodium 131.? Orthopedic surgeon was consulted and did do an I&D of the second right finger in the ER.? Orthopedics recommended that we continue IV clindamycin and observe the patient overnight.? If condition improved can discharge home on clindamycin. Interim history: The patient notes ongoing pain and increased swelling in the right index finger. Exam Vital Signs (past 8 hours): - 09/17/24 08:30 Temperature 97.4 F L Pulse Rate 93 H Respiratory Rate 20 Blood Pressure 142/72 H Pulse Oximetry 96 Oxygen Delivery Method Room Air Oxygen Flow Rate 0 Narrative Exam Narrative: Physical Exam: GENERAL: The patient is not in any acute distressed. Awake and alert. HEENT: Nonicteric sclerae, PERRLA, EOMI. Oropharynx clear. Moist mucous membranes. Conjunctivae appear well perfused. HEART: Regular rate and rhythm without murmurs. No lower extremities edema. LUNGS: Clear to auscultation bilaterally. No wheezing, crackles or rhonchi ABDOMEN: Soft, positive bowel sounds, nontender. SKIN: Second right finger in dressing. This is removed and the finger is tender, indurated, erythematous with packing in place distally in the wound, with expressible purulent discharge. NEUROLOGIC: AxO x 3. Cranial nerves II-XII intact without motor/sensory deficit. Objective Imaging Right hand finger xray 09/16/2024:: Radiologist's impression: [id number] scattered degenerative changes particularly at the base of the thumb. No acute displaced fracture or dislocation. No definite radiographic osseous erosions. Soft tissue defect seen at the tip of the index finger. If there is high concern for further derangement, consider MRI evaluation. Labs 09/17/24 05:40 09/17/24 05:40 Labs: Laboratory Results - last 24 hr 09/16/24 09/17/24 17:20 05:40 WBC 10.8 6.6 RBC 3.79 L 3.53 L Hgb 13.3 12.6 Hct 39.8 37.1 MCV 105.0 H 105.1 H MCH 35.2 H 35.6 H MCHC 33.5 33.8 RDW 15.3 H 15.3 H Plt Count 240 236 Neut % (Auto) 69.3 54.9 Lymph % (Auto) 20.4 L 31.8 [place] % (Auto) 9.7 11.8 Eos % (Auto) 0.4 L 1.2 L Baso % (Auto) 0.2 0.3 Neut # (Auto) 7500 H 3600 Lymph # (Auto) 2200 2100 [place] # (Auto) 1000 H 800 Eos # (Auto) 0 100 Baso # (Auto) 0 0 PT 10.5 INR 0.9 APTT 34 Sodium 131 L 130 L Potassium 4.0 3.9 Chloride 99 98 Carbon Dioxide 23 28 BUN 5 L 6 L Creatinine 0.50 L 0.57 Estimated GFR > 60 > 60 BUN/Creatinine Ratio 10.0 10.5 Glucose 117 H 88 Lactate 1.0 Calcium 8.5 8.1 L Total Bilirubin 1.0 AST 33 ALT 24 Alkaline Phosphatase 99 Total Protein 6.7 Albumin 4.2 Globulin 2.5 Albumin/Globulin Ratio 1.7 Lipase 36 Procalcitonin 31.0 H ON LICENSE OF [facility] Surgical History (Updated 07/29/17 @ 05:57 by Conversion Provider) Status post hysterectomy (01/29/88) Family History (Updated 03/26/16 @ 00:00 by Conversion Provider) Father Diabetes mellitus Diabetic polyneuropathy Grandfather Heart disease Mother Mental health problem Social History household members: friend(s) Smoking Status: Current every day smoker alcohol intake: current Assessment & Plan Assessment & Plan narrative: 1. Cellulitis of right second finger with significant swelling.? Continue medical observation.? Of note the patient not septic at this time.? The patient did had I&D and swab sent for culture by orthopedic surgeon in the ER.? Per orthopedic surgery recommendation.? continue IV clindamycin and observe the patient. Given persistent erythema and tenderness will monitor an additional day in the hospital then if improved can discharge home on oral clindamycin and follow-up as outpatient. However, note that she was admitted 10 years ago with similar presentation and was in the hospital for 5 days on IV antibiotics, and also lives in [place], a remote location accessible by [employer]. 2. Mild hyponatremia.? Likely from dehydration.? NS and recheck sodium in the morning.? Of note sodium was 131 now 130. 3. Insomnia.? Continue home medication. 4. Anxiety.? Continue home antianxiety medication. DVT prophylaxis SCD due to observational status. CODE STATUS full code. Disposition likely home in 1 to 2 days. Quality VTE Deep Vein Thrombosis/Pulmonary Embolism Present on Admission: No PROFEE Account Resolution Analyst Document charge(s): No Charge Codes Subsequent inpatient/observation care: [id number]
[2024-09-17] MEDS: KETOROLAC 30 MG/ML VIAL 15 MG IV ×2 (15:37→21:16)
--- NOTE | 2024-09-17 16:11 | CM.DANOTE ---
Initial DCP Assessment Note Pt is a 74 yo female, resident of [place], admitted for management of right finger cellulitis with IV abx. Patient had an I+D by Ortho in the ER. PCP: Bhavik Blakely Payer: MANUEL/KEISHA Reviewed chart, met w/patient who reports living independently with her good friend. [place]. Patient's friend is available to assist her throughout recovery. Patient has had recurrent hand/wrist infections and has done her own wound care in the past, denies needs. No barriers identified at this time to patient's safe discharge home w/friend. Social work team will plan to follow clinical course closely in case any DC needs or concerns arise. BRODY Tatum Discharge Planning/Care Management CM Discharge Assessment Start: 09/16/24 22:17 Freq: Status: Active Protocol: Document 09/17/24 16:09 LUIS (Rec: 09/17/24 16:11 LUIS [id number]) Discharge Planning Assessment Assigned Discharge BRODY Del Valle Job Recruiter DPOA/Assigned Thais Stubbs, friend Designee Name Contact Information [phone] or [phone] Advance Directives? No History Provided By Patient,Medical Record Prior Living House Arrangements Household Members friend(s) Independent with ADL Yes 's Is patient alert and Yes oriented? Comment Indp Comment Home Barriers to No Discharge Discharge Plan Home Transportation Self Arrangement
[2024-09-17] MEDS: ATORVASTATIN 20 MG TABLET PO (16:20)
[2024-09-17 19:28] VITALS: BP 122/57; PULSE 77; RESP 18; TEMP 36.1; O2SAT 96
[2024-09-18] MEDS: CLINDAMYCIN 600 MG/50 ML PIGGYBACK 50 MG IV ×4 (00:34→18:09)
[2024-09-18] MEDS: OXYCODONE IR 5 MG TABLET PO ×3 (01:50→20:07)
[2024-09-18] MEDS: KETOROLAC 30 MG/ML VIAL 15 MG IV ×4 (03:26→21:42)
[2024-09-18 08:00] VITALS: BP 140/70; PULSE 80; RESP 19; TEMP 36.4; O2SAT 97
[2024-09-18] MEDS: ESCITALOPRAM 10 MG TABLET 20 MG PO (08:57)
[2024-09-18] MEDS: ACETAMINOPHEN 325 MG TABLET 650 MG PO ×2 (08:58→15:12)
[2024-09-18] MEDS: MORPHINE 4 MG/ML INJ IV ×2 (11:59→18:57)
--- NOTE | 2024-09-18 14:20 | P.PN_ITS ---
Subjective Subjective Interval history: 74-year-old female with underlying history of anxiety and insomnia as well as remote history of digital finger abscess who is presently admitted with a right index finger cellulitis and abscess. She reports her finger was feeling a lot better this morning, but now she is having more pain. She notes when she had a previous infection like this, it took 5-10 days before it healed. She is an active smoker. She has been trying to quit and switch to using a vape pen, but learned that they are potentially more harmful than cigarettes. Exam Vital Signs (past 8 hours): - 09/18/24 08:00 Temperature 97.6 F Pulse Rate 80 Respiratory Rate 19 Blood Pressure 140/70 Pulse Oximetry 97 Oxygen Delivery Method Room Air Oxygen Flow Rate 0 Narrative Exam Narrative: GEN: Very pleasant middle-aged female, Alert and oriented x 3, NAD HEENT:NC, Face symmetric CHEST: Respiratory excursions symmetric, course with scattered wheezes bilaterally CV: RRR, no M/R/G ABD: Soft, NT/ND, BT present in all 4 quadrants, no organomegaly or masses EXTR: warm, well perfused, no C/C/E, right index finger is bruised distally with minimal swelling, there is a small amount of purulent pink drainage noted at the proximal part of the DIP where the incision is, iodoform packing in place SKIN: warm and dry, no rash NEURO: Alert and oriented x 3, nonfocal Objective Labs 09/17/24 05:40 09/17/24 05:40 [facility] Surgical History (Updated 07/29/17 @ 05:57 by Conversion Provider) Status post hysterectomy (01/29/88) Family History (Updated 03/26/16 @ 00:00 by Conversion Provider) Father Diabetes mellitus Diabetic polyneuropathy Grandfather Heart disease Mother Mental health problem Social History household members: friend(s) Smoking Status: Current every day smoker alcohol intake: current Assessment & Plan Assessment & Plan narrative: 1. Cellulitis and abscess of the right distal index finger Patient remains on clindamycin 600 mg q.6 hours. She is also receiving Toradol, Tylenol, morphine and oxycodone as needed for pain. Will consult Wound Care for further recommendations. She lives on [place]. Will need to coordinate with discharge planning in terms of a discharge plan for wound care. Discussed with her that her tobacco dependence is likely increasing her risk for small- vessel disease and increased skin infection. She expresses understanding. Wound cultures are thus far negative. 2. Mild hyponatremia Sodium mildly low at 130. No treatment needed. 3. Insomnia Continue Ambien as needed for sleep. 4. Anxiety She appears to be at baseline currently. 5. Tobacco dependence Discussed the importance of smoking cessation. Code status Full Prophylaxis Low Baylee score Disposition Plan to discharge home once follow-up an outpatient wound care arrangements have been made Time-Based Coding :: [TOTAL MINUTES] spent with patient and on the chart (including review of chart, obtaining history, exam, reviewing outside data, placing orders, documenting exam and treatment plan, and counseling patient) on [DATE]. Quality VTE Deep Vein Thrombosis/Pulmonary Embolism Present on Admission: No
[2024-09-18] MEDS: ATORVASTATIN 20 MG TABLET PO (16:39)
[2024-09-18 19:00] VITALS: BP 126/55; PULSE 77; RESP 16; TEMP 36; O2SAT 95
[2024-09-18] MEDS: ZOLPIDEM 5 MG TABLET PO (20:08)
[2024-09-19] MEDS: CLINDAMYCIN 600 MG/50 ML PIGGYBACK 50 MG IV ×4 (00:38→17:27)
[2024-09-19] MEDS: MORPHINE 4 MG/ML INJ IV ×3 (06:09→20:52)
[2024-09-19 06:25] LABS: BUN Creatinine Ratio 16.4 (6-22); Blood Urea Nitrogen 10 mg/dL (7-17); Calcium 9.2 mg/dL (8.4-10.2); Carbon Dioxide 32 mmol/L (22-32); Chloride 93 mmol/L (98-107); Estimated Glomerular Filt Rate > 60 mL/min (>60); Glucose 108 mg/dL (70-99); HEMOLYSIS < 15 (0-50); Potassium 4.3 mmol/L (3.4-5.1); Sodium 131 mmol/L (137-145)
[2024-09-19 08:00] VITALS: BP 105/57; PULSE 82; RESP 17; TEMP 36.5; O2SAT 95
[2024-09-19] MEDS: ESCITALOPRAM 10 MG TABLET 20 MG PO (08:38)
[2024-09-19] MEDS: KETOROLAC 30 MG/ML VIAL 15 MG IV ×3 (08:38→20:53)
--- NOTE | 2024-09-19 11:35 | CM.DPC ---
DCP Wound Care Cont: Per MD, pt likely about stable to d/c home but need to confirm pt's wound care and packing plan for return home to [place] likely tomorrow Mon as pt has daily wound care and packing needs. WILDER made initial referral to [facility] for RN for wound care and secure emailed referral and F2F completed but not sent yet. SW to call PCP office tomorrow Mon AM at [facility] to determine if they can help provide f/u wound care on [address] along with [facility] at d/c otherwise pt would likely have to leave [facility] and come off [address] for [facility] at d/c. BRODY Wright
[2024-09-19] MEDS: ATORVASTATIN 20 MG TABLET PO (16:12)
[2024-09-19] MEDS: OXYCODONE IR 5 MG TABLET PO ×2 (16:12→19:57)
[2024-09-19] MEDS: ZOLPIDEM 5 MG TABLET PO (19:57)
[2024-09-19 20:00] VITALS: BP 133/62; PULSE 66; RESP 18; TEMP 36.6; O2SAT 97
--- NOTE | 2024-09-19 20:25 | P.PN_ITS ---
Subjective Subjective Interval history: 74-year-old female with underlying history of anxiety and insomnia as well as remote history of digital finger abscess who is presently admitted with a right index finger cellulitis and abscess. Patient reports she continues to feel her finger is improving. She is less pain and feels her fingers less swollen as well. She is glad she is remained in the hospital but hopes to be able to discharge tomorrow. Exam Vital Signs (past 8 hours): Oxygen Delivery Method Room Air Oxygen Flow Rate 0 Narrative Exam Narrative: GEN: Very pleasant middle-aged female, Alert and oriented x 3, NAD HEENT:NC, Face symmetric CHEST: Respiratory excursions symmetric, course but clear bilaterally CV: RRR, no M/R/G ABD: Soft, NT/ND, BT present in all 4 quadrants, no organomegaly or masses EXTR: warm, well perfused, no C/C/E, right index finger is bruised distally with minimal swelling, there is a small amount of purulent yellowish drainage noted at the proximal part of the DIP where the incision is, iodoform packing in place, overall the wound appears smaller SKIN: warm and dry, no rash NEURO: Alert and oriented x 3, nonfocal Objective Labs 09/17/24 05:40 09/19/24 06:00 Labs: Laboratory Results - last 24 hr 09/19/24 06:00 Sodium 131 L Potassium 4.3 Chloride 93 L Carbon Dioxide 32 BUN 10 Creatinine 0.61 Estimated GFR > 60 BUN/Creatinine Ratio 16.4 Glucose 108 H Calcium 9.2 PFSH Surgical History (Updated 07/29/17 @ 05:57 by Conversion Provider) Status post hysterectomy (01/29/88) Family History (Updated 03/26/16 @ 00:00 by Conversion Provider) Father Diabetes mellitus Diabetic polyneuropathy Grandfather Heart disease Mother Mental health problem Social History household members: friend(s) Smoking Status: Current every day smoker alcohol intake: current Assessment & Plan Assessment & Plan narrative: 1. Cellulitis and abscess of the right distal index finger Patient remains on clindamycin 600 mg q.6 hours. She is also receiving Toradol, Tylenol, morphine and oxycodone as needed for pain. Will consult Wound Care for further recommendations. She lives on Friday. Will need to coordinate with discharge planning in terms of a discharge plan for wound care. Discussed with her that her tobacco dependence is likely increasing her risk for small- vessel disease and increased skin infection. She expresses understanding. Wound cultures are thus far negative. Patient does note there may be [place], but that is not entirely clear at this time. 2. Mild hyponatremia Sodium improved today at 131. 3. Insomnia Continue Ambien as needed for sleep. 4. Anxiety She appears to be at baseline currently. 5. Tobacco dependence Discussed the importance of smoking cessation. Code status Full Prophylaxis Low Baylee score Disposition Plan to discharge home tomorrow, once outpatient follow-up for wound packing has been coordinate Time-Based Coding :: [TOTAL MINUTES] spent with patient and on the chart (including review of chart, obtaining history, exam, reviewing outside data, placing orders, documenting exam and treatment plan, and counseling patient) on [DATE]. Quality VTE Deep Vein Thrombosis/Pulmonary Embolism Present on Admission: No
[2024-09-20] MEDS: CLINDAMYCIN 600 MG/50 ML PIGGYBACK 50 MG IV ×3 (06:15→13:14)
[2024-09-20 08:00] VITALS: BP 121/70; PULSE 92; RESP 18; TEMP 36.1; O2SAT 97
[2024-09-20] MEDS: KETOROLAC 30 MG/ML VIAL 15 MG IV (09:04)
[2024-09-20] MEDS: OXYCODONE IR 5 MG TABLET PO (09:05)
[2024-09-20] MEDS: ESCITALOPRAM 10 MG TABLET 20 MG PO (09:06)
[2024-09-20] MEDS: MORPHINE 4 MG/ML INJ IV (13:13)
--- NOTE | 2024-09-20 13:53 | PM.CN.IH.1 ---
History of Present Illness Consult details Date Patient Seen: 09/20/24 Time Patient Seen: 12:10 Chief complaint: Infection spreading in r hand index finger Requesting provider: Yolanda Marr Narrative: 74 year-old female with past medical history of anxiety, tobacco use disorder, and insomnia in wound care consultation for right second finger felon infection s/p I&D. The patient is currently being treated with oral clindamyicin and has been receiving packing changes to the abscess qd-qod. She notes significant improvement since hospitalization but continues to have pain in the finger . She was treated by her PCP with a round of doxycycline prior to admission for cellulitis of the finger. She reports multiple prior episodes with similar wounds requiring hospitalization and IV antibiotics. She believes she is tolerating clindaymicin well and denies any current diarrhea. She denies fever, chills, or other symtpoms of concern. SHe has smoked cigarettes for over 50 years and she is considering quitting. Meds Home Medications and Allergies Home Medications ?Medication ?Instructions ?Recorded ?Confirmed ?Type zolpidem 5 mg tablet 10 mg PO HS ##0 01/31/16 09/16/24 History albuterol 90 mcg/actuation aerosol 2 mcg inhalation PRN PRN Allergy 02/07/21 09/16/24 History inhaler Symptoms denosumab 60 mg/mL subcutaneous 60 mg SUBCUT [id number] 02/07/21 09/16/24 History syringe (Prolia) escitalopram oxalate 20 mg tablet 20 mg PO DAILY 02/07/21 09/16/24 History (Lexapro) diphenhydramine HCl 25 mg capsule 25 mg PO Q6H PRN Allergy Symptoms 03/14/21 09/16/24 History (Benadryl) atorvastatin 20 mg tablet 20 mg PO QPM 09/16/24 09/16/24 History zolpidem 12.5 mg tablet,extended 12.5 mg PO ONCE PM PRN insomnia 09/16/24 09/16/24 History release,multiphase clindamycin HCl 300 mg capsule 600 mg (2 x 300 mg) PO QID 5 days 09/20/24 Rx #40 caps oxycodone 5 mg tablet 5 mg PO TID PRN pain 7 days #10 09/20/24 Rx tabs Allergies Allergy/AdvReac Type Severity Reaction Status Date / Time cephalexin (From [employer]) Allergy Severe Anaphylaxis Verified 09/16/24 16:28 Penicillins (PENICILLINS) Allergy Severe Anaphylaxis Verified 09/16/24 16:28 Exam Vital Signs (past 8 hours): GEN: Alert and oriented x 3, NAD HEENT:NC, Face symmetric CHEST: Normal breathing effort FINGER: warm, well perfused, no C/C/E, right index finger is bruised distally with minimal swelling, full thickness wound to finger tip, no open cavity, no drainage. Tender on palpation. SKIN: warm and dry, no rash NEURO: Alert and oriented x 3, nonfocal - 09/20/24 08:00 Temperature 97.0 F L Pulse Rate 92 H Respiratory Rate 18 Blood Pressure 121/70 Pulse Oximetry 97 Oxygen Delivery Method Room Air Oxygen Flow Rate 0 Objective Labs 09/17/24 05:40 09/19/24 06:00 [facility] Surgical History (Updated 07/29/17 @ 05:57 by Conversion Provider) Status post hysterectomy (01/29/88) Family History (Updated 03/26/16 @ 00:00 by Conversion Provider) Father Diabetes mellitus Diabetic polyneuropathy Grandfather Heart disease Mother Mental health problem Social History household members: friend(s) Tobacco & Substance Use Smoking Status: Current every day smoker alcohol intake: current Assessment & Plan Assessment and plan (1) Felon of digit: Problem details: Right index finger Status: Acute Plan PLAN Check/wash daily with saline and/or vashe, discussed getting VASHE wound wash at [facility] Cover with absorbent nonadherent dressing Follow up at wound clinic for assumption of care - discussed options [place] Encouraged smoking cessation. Patient plans to f/u with PCP Time-Based Coding :: [30] spent with patient and on the chart (including review of chart, obtaining history, exam, reviewing outside data, placing orders, documenting exam and treatment plan, and counseling patient) on [09/20/24]. PROFEE Charge Codes Inpatient or Observation consultation: 10873
--- NOTE | 2024-09-20 15:24 | PC.NURSE ---
Day shift: Discharge instructions gone over with patient, including changing wound dressing daily. Patient stated understanding, all questions answered. PIV d/c'ed prior to discharge. All belongings with patient. 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
--- NOTE | 2024-09-20 15:29 | CM.DPNOTE ---
DCP Note BAG CUTTER reviewed EMR per provider, cleared to dc today once wound care plan arranged. per Elijah at [facility], can accept. 2-3x/week. BAG CUTTER completed order/f2f. Emailed to Elijah at [facility]. dc summary pending. BAG CUTTER met with pt in room. agree to dc home today. reports likely to remain in [facility] in hotel for tonight and ferry home tomorrow. has a priority boarding pass. agreeable to . BAG CUTTER gave pt [place] brochure. pt to get scripts filled at [facility] here. Per bedside RN, pt capable of doing dressing change self inbetween when HH can do it. per wound care notes, preference to also f/u in clinic here in OP setting. per team at wound care center, scheduled pt for appt 1330 09/23. BAG CUTTER gave pt f/u information. pt confirmed able to make it. Bedside RN to give pt supplies needed for next few days. P: dc today to stay in hotel in [place] overnight and ferry home tomorrow. will do dressing changes until appt 09/23 or [facility] can do them. CM team will continue to follow as needed for DCP coordination BRODY Johnson
--- NOTE | 2024-09-21 17:01 | PM.DS.1 ---
History of Present Illness History of Present Illness Date Patient Seen: 09/20/24 Chief complaint: Infection spreading in r hand index finger Narrative: Per admitting provider, 74 year-old female with past medical history of anxiety and insomnia presents with concern for right second finger infection.? Per the patient's report, the patient had a paper cut on her second right finger about a week ago.? The patient was seen by her PCP and was prescribed doxycycline on Friday for cellulitis of the finger.? However despite taking her doxycycline as prescribed, the patient continued to have worsening redness, pain and swelling of her right second finger.? Otherwise the patient denies any fever, chills, nausea, vomiting, diarrhea, chest pain or shortness of breath. In the ER, the patient was hemodynamically stable.? Labs does not show any sign of sepsis with normal lactate and WBC.? Sodium 131.? Orthopedic surgeon was consulted and did do an I&D of the second right finger in the ER.? Orthopedics recommended that we continue IV clindamycin and observe the patient overnight.? If condition improved can discharge home on clindamycin. Discharge Providers Provider Date of admission: 09/16/24 21:18 Discharge Date: 09/21/24 Primary care physician: Porsha Tinoco MD Consults: 09/18/24 12:08 Consult to Wound Care Routine Comment: Consulting Provider: [facility] 09/18/24 12:10 Consult to Discharge Planning Routine Comment: wound care at d/c 09/20/24 15:13 Consult to Home Health Routine Comment: Reason For Exam: RN - wound care Discharge provider: Alex Luu DO Summary Hospital Course Discharge Diagnosis: 1. Cellulitis and abscess of the right distal index finger 2. Mild hyponatremia 3. Insomnia 4. Anxiety 5. Tobacco dependence Hospital Course: 74 year old female admitted after an I&D of a R index finger felon with orthopedics. Post operatively she had difficulty with pain control mainly due to packing. She was seen by wound care and evenutally it was determined packing was not needed. She will continue dressing changes at home, and complete a course of antibiotics with clindamycin which was started on admission. Home health referral was made and patient will follow up with wound care here after discharge. Time Spent with Patient Time spent: Greater than 30 minutes Exam Vital Signs (past 8 hours): Oxygen Delivery Method Room Air Oxygen Flow Rate 0 Narrative Exam Narrative: GEN: Very pleasant middle-aged female, Alert and oriented x 3, NAD EXTR: warm, well perfused, no C/C/E, right index finger is bruised distally with minimal swelling, wound is wrapped today. SKIN: warm and dry, no rash NEURO: Alert and oriented x 3, nonfocal Objective Labs 09/17/24 05:40 09/19/24 06:00 [facility] Surgical History (Updated 07/29/17 @ 05:57 by Conversion Provider) Status post hysterectomy (01/29/88) Family History (Updated 03/26/16 @ 00:00 by Conversion Provider) Father Diabetes mellitus Diabetic polyneuropathy Grandfather Heart disease Mother Mental health problem Social History household members: friend(s) alcohol intake: current Discharge Plan Discharge Plan Patient Disposition: Home Provider Discharge Comment: You were admitted to the hospital with a felon on your hand. You had surgical drainage. Continue local wound care at home, home health was ordered. Discharge orders & Medications Prescriptions: New clindamycin HCl 300 mg capsule 600 mg PO QID 5 Days Qty: 40 0RF oxycodone 5 mg tablet 5 mg PO TID PRN (Reason: pain) 7 Days Qty: 10 0RF Continued zolpidem 5 mg tablet 10 mg PO HS Qty: 0 albuterol 90 mcg/actuation Aerosol 2 mcg INHALATION PRN PRN (Reason: Allergy Symptoms) Patient Comments: uses for allergies-seasonal or when wood stove is on. escitalopram oxalate [Lexapro] 20 mg Tablet 20 mg PO DAILY Prolia 60 mg/mL Syringe 60 mg SUBCUT [id number] Patient Comments: due to get again for osteoporosis diphenhydramine HCl [Benadryl] 25 mg Capsule 25 mg PO Q6H PRN (Reason: Allergy Symptoms) zolpidem 12.5 mg tablet,ext release multiphase 12.5 mg PO ONCE PM PRN (Reason: insomnia) atorvastatin 20 mg tablet 20 mg PO QPM Follow up/Referrals: Porsha Tinoco MD [Primary Care Provider, Family Practice] Diet/Activity/Treatments Diet: Diet as Tolerated and Regular Activity: No restrictions Skin/Wound/Dressing Care Dressing: Continue dressing changes as recommended by wound care. Visit Report/Discharge Packet Instructions: DI for Prescription Opioid Use Stand Alone Forms: Patient Portal/API, Stroke Signs & Symptoms Discharge Data Primary Care Provider: Porsha Tinoco VTE Deep Vein Thrombosis/Pulmonary Embolism Present on Admission: No
== END 2024-09-20 15:26 | disposition home health service (06) | DRG 603 ==
LOC: ED 20:18 → AC 21:57
PROVIDERS: Family Medicine; Admitting Provider Internal Medicine; Emergency Provider Student in an Organized Health Care Education/Training Program; Family Provider Family Medicine; PCP Family Medicine; Referring Provider Student in an Organized Health Care Education/Training Program; Visit Provider Internal Medicine
DX: L03.011 Cellulitis of right finger (principal); E87.1 Hypo-osmolality and hyponatremia; L02.511 Cutaneous abscess of right hand; E86.0 Dehydration; G47.00 Insomnia, unspecified; F41.9 Anxiety disorder, unspecified; F17.210 Nicotine dependence, cigarettes, uncomplicated
CPT/HCPCS: 36415; 73140; 80048; 80053; 83605; 83690; 84145; 85025; 85610; 85730; 87040; 87070; 87075; 87205; 93005; 93010; 96365; 96367; 96375; 96376; 99284; J1885; J1956; J2270

== ENCOUNTER → 2024-09-23 13:59 | Outpatient (CLI) | payer MEDICARE, OTHER, SELFPAY ==
[2024-09-16 22:34] VITALS: BMI 10.5
== END ==
PROVIDERS: Family Provider Family Medicine; PCP Student in an Organized Health Care Education/Training Program; Referring Provider Family Medicine; Visit Provider Surgery
DX: B99.9 Unspecified infectious disease (principal); S61.200A Unspecified open wound of right index finger without damage to nail, initial encounter; L03.011 Cellulitis of right finger; F41.1 Generalized anxiety disorder; F17.210 Nicotine dependence, cigarettes, uncomplicated; G47.00 Insomnia, unspecified
CPT/HCPCS: 11042; 87070; 87075; 87205; 99203; 99213

== ENCOUNTER → 2024-09-30 14:19 | Outpatient (CLI) | payer MEDICARE, OTHER, SELFPAY ==
[2024-09-16 22:34] VITALS: BMI 10.5
== END ==
LOC: WC 14:54
PROVIDERS: Family Provider Family Medicine; PCP Student in an Organized Health Care Education/Training Program; Referring Provider Student in an Organized Health Care Education/Training Program; Visit Provider Surgery
DX: S61.200A Unspecified open wound of right index finger without damage to nail, initial encounter (principal); S81.812A Laceration without foreign body, left lower leg, initial encounter; L03.011 Cellulitis of right finger
CPT/HCPCS: 11042; 97602; 99213

== ENCOUNTER → 2024-10-04 12:08 | Outpatient (CLI) | payer MEDICARE, OTHER, SELFPAY ==
[2024-09-16 22:34] VITALS: BMI 10.5
== END ==
PROVIDERS: Family Provider Family Medicine; PCP Student in an Organized Health Care Education/Training Program; Referring Provider Student in an Organized Health Care Education/Training Program; Visit Provider Surgery
DX: S61.200A Unspecified open wound of right index finger without damage to nail, initial encounter (principal); S81.812A Laceration without foreign body, left lower leg, initial encounter; L02.512 Cutaneous abscess of left hand; L03.012 Cellulitis of left finger
CPT/HCPCS: 11042; 87070; 87075; 87205; 99213

== ENCOUNTER → 2024-10-11 11:20 | Outpatient (CLI) | payer MEDICARE, OTHER, SELFPAY ==
[2024-09-16 22:34] VITALS: BMI 10.5
== END ==
LOC: WC 11:22
PROVIDERS: Family Provider Family Medicine; PCP Student in an Organized Health Care Education/Training Program; Referring Provider Student in an Organized Health Care Education/Training Program; Visit Provider Surgery
DX: R23.4 Changes in skin texture (principal); S81.812A Laceration without foreign body, left lower leg, initial encounter; L02.512 Cutaneous abscess of left hand; L03.114 Cellulitis of left upper limb
CPT/HCPCS: 11042; 97602